=== PATIENT | female | born 1935 | race African-American/Black ===

== ENCOUNTER 2017-09-26 13:55 | Outpatient (CLI) | payer MEDICARE ==
[~2017-09-26] VITALS: Ht 165.1 cm; Wt 65.0 kg
[2017-09-26 16:39] VITALS: BP 150/73; Ht 165.1 cm; Wt 65.0 kg
== END 2017-09-26 18:20 | disposition home or self-care (01) ==
LOC: D.OPS 13:55
DX: D64.9 Anemia, unspecified (principal)

== ENCOUNTER 2017-12-07 15:15 | Outpatient (CLI) | payer MEDICARE ==
[~2017-12-07] VITALS: Ht 165.1 cm; Wt 63.6 kg
[2017-12-07 16:41] VITALS: BP 161/49; Ht 165.1 cm; Wt 63.6 kg
== END 2017-12-07 20:05 | disposition home or self-care (01) ==
LOC: D.OPS 15:15
DX: D63.1 Anemia in chronic kidney disease (principal); Z01.812 Encounter for preprocedural laboratory examination